=== PATIENT | male | born 1995 | race Caucasian/White ===

== ENCOUNTER 2016-04-15 19:16 | Emergency (ER) | payer SELFPAY ==
[2016-04-15 19:59] VITALS: BP 155/92
--- NOTE | 2016-04-15 21:19 | UC ---
[facility] Dental HPI - HPI Summary HPI Summary: complaint of dental pain in upper left side of jaw started last night but has worsened today denies fever taking tylenol and motrin without much relief has dentist Dr Fajardo has appt next week - History of Current Complaint Chief Complaint: UCDentalProblem Stated Complaint: DENTAL Time Seen by Provider: 04/15/16 21:13 Hx Obtained From: Patient - Allergies/Home Medications Allergies/Adverse Reactions: Allergies Allergy/AdvReac Type Severity Reaction Status Date / Time Cefixime [From Suprax] Allergy Hives Verified 04/15/16 19:59 Sodium Benzoate [From Suprax] Allergy Hives Verified 04/15/16 19:59 Home Medications: Home Medications Acetaminophen [Extra Strength Acetaminop] 1,000 mg PO DAILY PRN 04/15/16 [ History Confirmed 04/15/16] PMH/Surg Hx/FS Hx/Imm Hx Previously Healthy: Yes - Surgical History Surgical History: Yes Surgery Procedure, Year, and Place: EAR TUBES-1994. STRANGULATED TESTICLE AND HERNIA REPAIR - Family History Known Family History: Negative: Cardiac Disease, Hypertension, Diabetes - Social History Occupation: Employed Full-time Alcohol Use: Occasionally Substance Use Type: None Smoking Status (MU): Former Smoker Type: Smokeless Tobacco Amount Used/How Often: 3/4 CAN daily Length of Time of Smoking/Using Tobacco: 7 YRS Have You Smoked in the Last Year: Yes When Did the Patient Quit Smoking/Using Tobacco: QUIT SMOKING 10/2015 Household Exposure Type: Cigarettes Review of Systems Constitutional: Negative Skin: Negative Eyes: Negative ENT: Dental Pain Respiratory: Negative Cardiovascular: Negative Gastrointestinal: Negative Genitourinary: Negative Motor: Negative Neurovascular: Negative Musculoskeletal: Negative Neurological: Negative Psychological: Negative All Other Systems Reviewed And Are Negative: Yes Physical Exam Triage Information Reviewed: Yes Appearance: No Pain Distress, Well-Nourished, Obese Vital Signs: Initial Vital Signs Temp 98.5 F 04/15/16 19:54 Pulse 105 04/15/16 19:54 Resp 16 04/15/16 19:54 BP 155/92 04/15/16 19:54 Pulse Ox 100 04/15/16 19:54 Vital Signs Reviewed: Yes Eyes: Positive: Conjunctiva Clear ENT: Positive: Pharynx normal, TMs normal. Negative: Nasal congestion Dental: Positive: Abscess @ - 14-15 Neck: Positive: No Lymphadenopathy Respiratory: Positive: Lungs clear, Normal breath sounds, No respiratory distress Cardiovascular: Positive: RRR, No Murmur, Pulses Normal Neurological: Positive: Alert Psychological Exam: Normal Skin Exam: Normal Dental Complaint Course/Dx - Differential Dx/Diagnosis Differential Diagnosis/Dx: Dental Abscess Provider Diagnoses: dental abscess Discharge - Discharge Plan Condition: Stable Disposition: HOME Prescriptions: Clindamycin Cap(NF) [Cleocin 300 mg Cap(NF)] 300 mg PO TID #30 cap traMADol TAB* [Ultram*] 50 mg PO Q6HR PRN #20 tab MDD 4 PRN Reason: Pain (Dental) Patient Education Materials: Dental Abscess (ED) Referrals: Floyd Gaitan MD [Primary Care Provider] - Additional Instructions: DENTAL ABSCESS What is a Dental Abscess? A dental abscess is an infection around the root of a tooth or in the gums or jawbone. The infection causes pus to collect, and a lump can appear. Dental abscesses often get their start when bacteria invade a decayed tooth; the decay may then travel to the gums or jawbone. Decay can also begin in the mouth when teeth are not brushed or flossed properly. Symptoms Might Include: In general, you'll start to have a fever, redness and swelling of the gums or cheek. If you have a lump it may feel hot. Other signs include tooth or mouth pain, a loose tooth, or not being able to close your mouth all the way. If the abscess spreads, your face, neck, or chest may swell. Treatment Recommendations: Rinse your mouth with warm water every hour or as needed to ease the pain. This will help draw the infection from the abscess. For pain, you may take non-prescription medicines such as acetaminophen ( Tylenol) or ibuprofen (Motrin, Advil). To help ease the pain, do not chew on the sore side for at least 2 days; you may need to limit yourself to a liquid diet. Putting ice on your face over the affected area may also relieve the pain. Apply the ice for 10 to 20 minutes out of every hour. Do not leave the ice on for long periods or you can get frostbite. If the abscess is drained, there may be a small hole or drain. Keep the area free of food by rinsing with water after eating. You'll need to return or be seen by a dentist to have the drain removed. The healthcare provider may have prescribed an antibiotic medicine. The medicine should be taken until it is completely gone, even if you are feeling better. If you stop taking the medicine early, the infection may not be completely gone, and the medication may not work the next time. To prevent abscesses: [place] regularly with a toothbrush recommended by your dentist. Floss daily and use a fluoride mouthwash, toothpaste, tablets, or supplements as instructed by your dentist or dental hygienist. Reduce the amount of sugar in your diet. Call Your Doctor or Return Here IF: You have a high temperature Your pain becomes worse You have any new symptoms or problems that may be due to the medicine you are taking You have new or increased swelling in your face, jaw, cheek, eye, or neck You have any other new symptoms that worry you
[2016-04-15] MEDS ORDERED: HYDROcodone/ACETAMIN 5-325 MG* 1 TAB PO ONE (21:22)
[2016-04-15] MEDS ORDERED: Clindamycin CAP* 150 MG PO ONE ×2 (21:23→21:24)
== END 2016-04-15 21:51 | disposition home or self-care (01) ==
LOC: UCCORT 19:16
DX: K04.7 Periapical abscess without sinus (principal); Z88.1 Allergy status to other antibiotic agents; F10.99 Alcohol use, unspecified with unspecified alcohol-induced disorder; F17.220 Nicotine dependence, chewing tobacco, uncomplicated
CPT/HCPCS: 99213; A9270-GY; G0463

== ENCOUNTER 2016-08-08 18:28 | Emergency (ER) | payer SELFPAY ==
[2016-08-08 19:41] VITALS: BP 153/90
[2016-08-08] MEDS ORDERED: Acetaminop/Codeine 30 MG TAB* 1 TAB (300 MG/30 MG) PO ONE (20:23)
--- NOTE | 2016-08-08 23:26 | UC ---
Dental HPI - HPI Summary HPI Summary: DENTAL PAIN THAT STARTED THIS MORNING. LOWER RT MOLAR. - History of Current Complaint Chief Complaint: UCDentalProblem Stated Complaint: DENTAL PAIN Time Seen by Provider: 08/08/16 19:30 Hx Obtained From: Patient, Family/Test Designer Onset/Duration: Sudden Onset, Lasting Hours, Still Present Severity: Moderate Pain Intensity: 7 Pain Scale Used: 0-10 Numeric Aggravating: Chewing Alleviating: Nothing Related History: Previous Dental Care on Same Tooth - Allergies/Home Medications Allergies/Adverse Reactions: Allergies Allergy/AdvReac Type Severity Reaction Status Date / Time Cefixime [From Suprax] Allergy Hives Verified 08/08/16 19:41 Sodium Benzoate [From Suprax] Allergy Hives Verified 08/08/16 19:41 PMH/Surg Hx/FS Hx/Imm Hx - Additional Past Medical History Additional PMH: obesity Previously Healthy: Yes - Surgical History Surgical History: Yes Surgery Procedure, Year, and Place: EAR TUBES-1994. STRANGULATED TESTICLE AND HERNIA REPAIR - Family History Known Family History: Positive: Hypertension, Diabetes Negative: Cardiac Disease - Social History Alcohol Use: Occasionally Substance Use Type: None Smoking Status (MU): Former Smoker Type: Smokeless Tobacco Amount Used/How Often: 3/4 CAN daily Length of Time of Smoking/Using Tobacco: 7 YRS Have You Smoked in the Last Year: Yes When Did the Patient Quit Smoking/Using Tobacco: QUIT SMOKING 10/2015 Household Exposure Type: Cigarettes Cessation Counseling: Patient Advised to Stop Review of Systems Constitutional: Negative Skin: Negative ENT: Dental Pain Respiratory: Negative Cardiovascular: Negative Neurological: Negative All Other Systems Reviewed And Are Negative: Yes Physical Exam Triage Information Reviewed: Yes Appearance: Well-Appearing, No Pain Distress, Well-Nourished Vital Signs: Initial Vital Signs Temp 98.5 F 08/08/16 19:35 Pulse 57 08/08/16 19:35 Resp 18 08/08/16 19:35 BP 153/90 08/08/16 19:35 Vital Signs Reviewed: Yes Eyes: Positive: Conjunctiva Clear. Negative: Discharge ENT: Positive: Hearing grossly normal. Negative: Muffled/hoarse voice Dental: Positive: Percussion Tenderness @ - 31,30. Negative: Cellulitis @, Cervical Lymphadenopathy Neck: Positive: Supple, Nontender, No Lymphadenopathy Respiratory: Positive: Lungs clear, Normal breath sounds, No respiratory distress, No accessory muscle use Cardiovascular: Positive: RRR, No Murmur Musculoskeletal Exam: Normal Neurological: Positive: Alert, Muscle Tone Normal Psychological: Positive: Age Appropriate Behavior Skin Exam: Normal Dental Complaint Course/Dx - Differential Dx/Diagnosis Differential Diagnosis/Dx: Dental Abscess, Dental Caries, Fractured Tooth Provider Diagnoses: toothahce Discharge - Discharge Plan Condition: Stable Disposition: HOME Prescriptions: Acetaminop/Codeine 30 MG TAB* [Tylenol/Codeine 30 MG TAB*] 1 tab PO Q6H PRN #14 tab MDD 4 tabs PRN Reason: Pain (Dental) Amoxicillin/Clavulanate TAB* [Augmentin TAB 875*] 875 mg PO BID #20 tab Patient Education Materials: Toothache (ED) Referrals: Floyd Gaitan MD [Primary Care Provider] - If Needed Additional Instructions: AUGMENTIN: Augmentin is a mixture of amoxicillin and clavulanate. Amoxicillin is a member of the penicillin family. It covers the germs likely to cause ear, bronchial, and urinary infections better than plain penicillin. The addition of clavulanate allows it to cover staph infections of the skin, as well as resistant cases of ear and sinus infections. Your physician has chosen Augmentin for you because of the special nature of your situation. Augmentin is best taken with meals. Nausea after taking the medication is rare, but can occur. Diarrhea can occur, particularly in small children. Vaginal yeast infections, and oral thrush in infants are also common. Contact your physician if these problems occur. Allergy to penicillins is common. If you have had an allergic reaction to any drug of the penicillin family, you should never take any other penicillin. Notify your doctor at once if you develop hives, shortness of breath, swelling, or faintness. ANYTIME YOU TAKE AN ANTIBIOTIC, IT IS IMPORTANT TO REPLENISH YOUR BODY'S SUPPLY OF GOOD BACTERIA. YOU CAN INCREASE YOUR BODY'S SUPPLY OF GOOD BACTERIA BY EATING FOODS LIKE HIGH QUALITY LOCAL YOGURT, SOUR KROUT, RAOUL BERENICE, NATURALLY FERMAENTED PICKLES OR PROBIOTIC DRINKS. YOU CAN ALSO GET GOOD BACTERIA FROM A PROBIOTIC SUPPLEMENT. ACETAMINOPHEN WITH CODEINE: You have been given a prescription for acetaminophen with codeine for pain control. Codeine is a narcotic. It is best taken with food, as nausea can result if taken on an empty stomach. Don't operate machinery or drive within six hours of taking this medication. Do not combine this medication with alcohol, or with any sedative type medicine such as cold tablets or sleeping pills unless your doctor gives permission. Narcotics tend to cause constipation. It's best to get plenty of fluids, fiber, and fruits. YOU WILL NEED TO FOLLOW UP WITH A DENTIST. PLEASE CALL YOUR DENTIST TO MAKE AN APPOINTMENT TO BE SEEN SOON POSSIBLE.
== END 2016-08-08 20:30 | disposition home or self-care (01) ==
LOC: UCCORT 18:28
DX: K08.89 Other specified disorders of teeth and supporting structures (principal); E66.9 Obesity, unspecified; F17.220 Nicotine dependence, chewing tobacco, uncomplicated; Z88.1 Allergy status to other antibiotic agents
CPT/HCPCS: 99212; A9270-GY; G0463

== ENCOUNTER 2018-04-06 10:35 | Emergency (ER) | payer BC ==
[2018-04-06 11:07] VITALS: BP 171/92
--- NOTE | 2018-04-06 11:29 | UC ---
Skin Complaint HPI - HPI Summary HPI Summary: 22-year-old male presents with 4 day history of tender erythema to his posterior neck. Denies fever, chills, drainage, changes in soaps, detergents, lotions, diet, or known contact with environmental irritants. - History of Current Complaint Chief Complaint: UCSkin Time Seen by Provider: 04/06/18 11:20 Stated Complaint: SKIN COMPLAINT-BACK OF NECK Hx Obtained From: Patient Pain Intensity: 6 - Allergy/Home Medications Allergies/Adverse Reactions: Allergies Allergy/AdvReac Type Severity Reaction Status Date / Time MS Cefixime [From Suprax] Allergy Hives Verified 04/06/18 11:05 MS Sodium Benzoate Allergy Hives Verified 04/06/18 11:05 [From Suprax] Home Medications: Home Medications Ibuprofen TAB* [Motrin TAB* 600 MG] 600 mg PO Q6H PRN 04/06/18 [History Confirmed 04/06/18] PMH/Surg Hx/FS Hx/Imm Hx Previously Healthy: Yes - Denies significant PMH - Surgical History Surgical History: Yes Surgery Procedure, Year, and Place: EAR TUBES-1994. STRANGULATED TESTICLE AND HERNIA REPAIR - Family History Known Family History: Positive: Hypertension, Diabetes - Social History Occupation: Employed Full-time Lives: With Family Alcohol Use: Rare Substance Use Type: None Smoking Status (MU): Heavy Every Day Tobacco Smoker Type: Smokeless Tobacco Amount Used/How Often: 3/4 CAN daily Length of Time of Smoking/Using Tobacco: 7 YRS Have You Smoked in the Last Year: Yes When Did the Patient Quit Smoking/Using Tobacco: QUIT SMOKING 10/2015 Household Exposure Type: Cigarettes Review of Systems All Other Systems Reviewed And Are Negative: Yes Constitutional: Negative: Fever, Chills Skin: Positive: Other - See HPI Respiratory: Positive: Negative Cardiovascular: Positive: Negative Gastrointestinal: Positive: Negative Genitourinary: Positive: Negative Musculoskeletal: Positive: Negative Neurological: Positive: Negative Is Patient Immunocompromised?: No Physical Exam - Summary Physical Exam Summary: GENERAL APPEARANCE: Well developed, well nourished, alert and cooperative, and appears to be in no acute distress. NECK: Neck supple, non-tender without lymphadenopathy. CARDIAC: Normal S1 and S2. No S3, S4 or murmurs. Rhythm is regular. There is no peripheral edema, cyanosis or pallor. Extremities are warm and well perfused. Capillary refill is less than 2 seconds. LUNGS: Clear to auscultation without rales, rhonchi, wheezing or diminished breath sounds. ABDOMEN: Positive bowel sounds. Soft, nondistended, nontender. No guarding or rebound. No masses or hepatosplenomegally. MUSKULOSKELETAL: ROM intact to all extremities. No joint erythema or tenderness. Normal muscular development. Normal gait. SKIN: 6 cm x 3 cm area of tender, erythematous, indurated skin without fluctuance or drainage noted to posterior neck. Triage Information Reviewed: Yes Vital Signs: Initial Vital Signs Temp 98.3 F 04/06/18 11:04 Pulse 107 04/06/18 11:04 Resp 14 04/06/18 11:04 BP 171/92 04/06/18 11:04 Pulse Ox 100 04/06/18 11:04 Vital Signs Reviewed: Yes Procedures - Procedure Summary Procedure Summary: PROCEDURE NOTE: Incision and drainage PROCEDURE: Informed consent was obtained and timeout protocol was performed prior to initiating the procedure. The skin was prepped with Betadine and the area draped in the usual, sterile manner. The site was anesthetized with _% lidocaine with epinephrine. A __ cm linear incision along the local skin lines was made and the purulent material expressed. The abscess was explored thoroughly and sequestered pockets were opened. The wound was packed with __. A bulky gauze dressing was then placed. Bleeding was minimal. The patient tolerated the procedure well without complications. Standard post- procedure care is explained and return precautions were given. Course/Dx - Course Course Of Treatment: 22-year-old male presents with 4 day history of tender erythema to his posterior neck. Denies fever, chills, drainage, changes in soaps, detergents, lotions, diet, or known contact with environmental irritants. Afebrile. Hypertensive but otherwise vital signs were stable. Exam revealed an area of tender, erythematous, indurated skin approximately 6 cm x 3 cm to his posterior neck without any fluctuance or drainage noted. Will treat for cellulitis using cephalexin 500 mg 4 times a day 7 days. Anticipatory guidance and warning symptoms were reviewed with the patient. He is to follow up with his primary care provider or return here in 3 days if symptoms do not improve. Patient verbalizes understanding and agrees with plan of care. - Differential Diagnoses - Skin Complaint Differential Diagnoses: Abscess, Cellulitis, Contact Dermatitis, Local Allergic Reaction, MRSA, Tinea - Diagnoses Provider Diagnosis: Cellulitis of neck, Elevated blood pressure reading Discharge - Sign-Out/Discharge Documenting (check all that apply): Patient Departure All imaging exams completed and their final reports reviewed: No Studies - Discharge Plan Condition: Stable Disposition: HOME Prescriptions: cephALEXin [Keflex] 500 mg PO QID #28 capsule Patient Education Materials: Cellulitis (DC) Referrals: No Primary Care Phys,NOPCP [Primary Care Provider] - [facility] [place] [facility] [Outside] Additional Instructions: You have an infection of the skin called cellulitis. This is generally caused by either a staph or strep bacteria which is normally found on the skin. We will start you on an antibiotic to treat the infection. Start cephalexin (Keflex) 1 capsule four times a day for 7 days. Be sure to take the entire course even if symptoms improve. May take over the counter acetaminophen (Tylenol) or ibuprofen (Advil, Motrin) according to directions for pain. Return here or follow up with your primary care provider in 3 days if no improvement in symptoms. Your blood pressure was elevated in the clinic today. It is recommended that you have this rechecked by your primary care provider within 4 weeks. I have given you the phone number for the [facility] Physician Referral service if you need assistance with scheduling an appointment. Seek immediate medical attention if you develop a fever greater than 100.5 F, have increased pain not managed with pain medication, redness that continues to spread, or any worsening of symptoms. - Billing Disposition and Condition Condition: STABLE Disposition: Home
== END 2018-04-06 11:45 | disposition home or self-care (01) ==
LOC: UCCORT 10:35
DX: L03.221 Cellulitis of neck (principal); L02.11 Cutaneous abscess of neck; R03.0 Elevated blood-pressure reading, without diagnosis of hypertension; Z88.1 Allergy status to other antibiotic agents; F17.220 Nicotine dependence, chewing tobacco, uncomplicated
CPT/HCPCS: 10060; 99212; G0463